=== PATIENT | male | born 1990 | race Caucasian/White ===

== ENCOUNTER 2019-04-08 20:46 | Emergency (ER) | payer OTHER ==
[~2019-04-08] VITALS: Ht 177.8 cm; Wt 74.8 kg
--- NOTE | 2019-04-08 20:51 | NUR ---
PT RECEIVED AMBULATORY WITH STABLE GAIT, -CARDIORESPIRATORY DISTRESS PT CAME IN FROM HOME C/O B/L EYE DISCOMFORT AND ERYTHEMA FOR 3DAYS. STATES HE WENT TO URGENT CARE TWO DAYS AGO AND RECEIVED ERYTHROMYCIN WITHOUT RELIEF. DENIES EYE PAIN, DENIES BLURRED VISION , DESCRIBED ITCHY AND WATERY DISCHARGE DENIES FOREIGN BODY ON EYES, DENIES HX OF SURGERY NOR CONTACT LENSES PT NAD, SITTING COMFORTABLY IN ROOM MD AT BEDSIDE FOR HX AND PHYSICAL
--- NOTE | 2019-04-08 21:05 | NUR ---
Patient discharged to home in stable conditon. Written and verbal after care instructions given. Patient verbalizes understanding of instructions. PT AMBULATORY WITH STABLE GAIT. PAIN FREE. ALL BELONGINGS WITH PATIENT
[2019-04-08 21:19] VITALS: BP 100/57
== END 2019-04-08 21:05 | disposition home or self-care (01) ==
LOC: ER 20:46
DX: H10.9 Unspecified conjunctivitis (principal); Z88.0 Allergy status to penicillin
CPT/HCPCS: A4663